=== PATIENT | female | born 1935 | race Caucasian/White ===

== ENCOUNTER 2017-12-02 08:10 | Outpatient (CLI) | payer MEDICARE, BC | END 2017-12-02 08:11 | disposition home or self-care (01) | LOC: BICMRI 08:10 | PROVIDERS: ATTEND Nurse Practitioner Family | DX: S32.019D Unspecified fracture of first lumbar vertebra, subsequent encounter for fracture with routine healing (principal); M48.062 Spinal stenosis, lumbar region with neurogenic claudication; M41.9 Scoliosis, unspecified | CPT/HCPCS: 72148 ==

== ENCOUNTER 2017-12-15 08:27 | Outpatient (CLI) | payer MEDICARE, BC | END 2017-12-15 08:28 | disposition home or self-care (01) | LOC: BICRAD 08:27 | PROVIDERS: ATTEND Anesthesiology Pain Medicine | DX: M47.894 Other spondylosis, thoracic region (principal); Z96.642 Presence of left artificial hip joint | CPT/HCPCS: 72070 ==

== ENCOUNTER 2018-01-04 10:21 | Outpatient (CLI) | payer MEDICARE, BC | END 2018-01-04 10:22 | disposition home or self-care (01) | LOC: BICMRI 10:21 | PROVIDERS: ATTEND Anesthesiology Pain Medicine | DX: M16.0 Bilateral primary osteoarthritis of hip (principal) ==

== ENCOUNTER 2018-01-24 13:31 | Outpatient (CLI) | payer MEDICARE, BC ==
--- NOTE | 2018-01-24 16:47 | MRI ---
MRI LEFT HIP WITHOUT CONTRAST: INDICATIONS: Left hip pain. COMPARISON: Prior MRI left hip from [facility], dated 01/04/2018. TECHNIQUE: Multiplanar, multisequence MR images were obtained of the left hip without IV contrast. FINDINGS: There is a partial-thickness, high-grade tear involving the left gluteus minimus along its posterior margin. The anterior mid aspect of the minimus tendon appears intact. There is a partial-thickness bursal surface tear involving the anterior left gluteus medius tendon. No muscular atrophy is grossly evident. The hamstring origins and the iliopsoas appear within normal limits. The rectus femoris insertions a ppear normal. There is mild degenerative arthrosis of the left hip. The visualized sciatic nerve is normal appearing. There is mild fluid underlying the subgluteus minimus trochanteric bursa, as well as the left subgluteus medius trochanteric bursa. IMPRESSION: 1. High-grade partial-thickness tear involving the posterior left gluteus minimus, with associated t rochanteric bursitis. There is moderate tendinosis of the left gluteus minimus tendon. 2. Low-grade bursal surface tear of the anterior aspect of the left gluteus medius with associated t rochanteric bursitis. 3. Mild degenerative arthrosis of the left hip. POS: PATRICIO
== END 2018-01-24 13:32 | disposition home or self-care (01) ==
LOC: TBSIIMAG 13:31
PROVIDERS: ATTEND Anesthesiology Pain Medicine
DX: S72.009A Fracture of unspecified part of neck of unspecified femur, initial encounter for closed fracture (principal); R22.9 Localized swelling, mass and lump, unspecified; S76.012A Strain of muscle, fascia and tendon of left hip, initial encounter; M16.12 Unilateral primary osteoarthritis, left hip; M70.62 Trochanteric bursitis, left hip

== ENCOUNTER 2018-02-15 14:19 | Outpatient (CLI) | payer MEDICARE, BC ==
--- NOTE | 2018-02-16 12:05 | MRI ---
MRI OF THE RIGHT HIP WITH AND WITHOUT IV CONTRAST: DATE: 02/15/18. PROVIDED CLINICAL HISTORY: Right hip mass. FINDINGS: Comparison is made with the MRI examination performed 01/04/18. There is a 2.6 x 1.4 cm greatest transverse dimension x at least 4.3 cm craniocaudal dimension mass p resent at the anterior aspect of the right hip joint overlying the inferior aspects of the femoral ne ck anteriorly. This demonstrates T1 signal characteristics isointense to skeletal muscle, heterogene ously hyperintense skeletal muscle on fluid-sensitive sequences, and fairly uniform contrast enhancem ent. This mass extends through the anterior aspect of the right hip joint capsule and there is enhan cement involving the lateral margin of the adjacent iliacus muscle. There is no evidence for cortica l involvement of the adjacent femoral neck or evidence for signal alteration involving the adjacent f emoral marrow. The amount of fluid within the right hip joint appears physiologic. No additional ma sses are evident. No additional abnormal contrast enhancement is identified. The courses of the regional major neurova scular structures appear unremarkable. The right hip flexor, abductor, adductor, and hamstring tendo ns demonstrate an intact MR appearance. IMPRESSION: Enhancing intraarticular mass involving the anterior inferior aspect of the right hip joint with caps ular breakthrough and involvement of the adjacent iliacus muscle. This is compatible with a neoplast ic process. Given the invasion of the adjacent musculature, a malignant neoplastic process cannot be excluded. Orthopedic ontologic consultation is recommended. CODE T POS: Mary
== END 2018-02-15 14:20 | disposition home or self-care (01) ==
LOC: TBSIIMAG 14:19
PROVIDERS: ATTEND Anesthesiology Pain Medicine
DX: M25.851 Other specified joint disorders, right hip (principal)

== ENCOUNTER 2018-02-17 08:02 | Day surgery (SDC) | payer MEDICARE, BC ==
[2018-02-16 09:23] VITALS: BMI 27.4
--- NOTE | 2018-02-17 13:05 | OP ---
DATE OF PROCEDURE: 02/17/2018 PREOPERATIVE DIAGNOSIS: Recurrent Clostridium difficile infection and colon cancer screening. PROCEDURE IN DETAIL: Informed consent was obtained from the patient. She was sedated with total int ravenous anesthesia. The rectal exam was performed and was normal. The colonoscope was advanced to the terminal ileum. The mucosa of the terminal ileum was normal. The ileocecal valve and appendicea l orifice were clearly identified. The preparation quality was good. The scope was withdrawn and th e mucosa was inspected throughout. There was moderate diverticulosis in the left colon. The colonic mucosa was otherwise normal. Retroflexed views in the rectum were normal. After thorough screening colonoscopy was performed, the scope was again advanced to the terminal ileum and donor stool was th en injected into the terminal ileum and colon. A total of 900 mL of donor stool were injected. IMPRESSION: 1. Diverticulosis in the sigmoid colon. 2. Otherwise normal screening colonoscopy to the terminal ileum. 3. 900 mL of donor stool were injected into the colon and terminal ileum for fecal transplant. RECOMMENDATIONS: Follow up in GI clinic to evaluate response to the fecal transplant. PROCEDURE: Colonoscopy with fecal transplant.
[2018-02-17] MEDS ORDERED: Lidocaine 1% PF 5 ML VIAL ONE (14:51)
[2018-02-17] MEDS ORDERED: PROPOFOL 200 MG/20 ML VIAL ONE (14:51)
--- NOTE | 2018-02-18 06:11 | EKG ---
Test Reason : PREOP Blood Pressure : / mmHG Vent. Rate : 061 BPM Atrial Rate : 061 BPM P-R Int : 184 ms QRS Dur : 082 ms QT Int : 444 ms P-R-T Axes : 062 -09 037 degrees QTc Int : 446 ms Normal sinus rhythm Nonspecific ST abnormality Abnormal ECG When compared with ECG of 28-JAN-2017 14:20, No significant change was found Confirmed by ESCOBAR SALAS ([id number]) on 02/18/2018 6:11:09 AM Referred By: MAZIN Confirmed By:ESCOBAR SALAS
== END 2018-02-17 12:52 | disposition home or self-care (01) ==
LOC: SDC 08:02
PROVIDERS: ATTEND Internal Medicine Gastroenterology
PROC: 3E0H8GC Introduction of Other Therapeutic Substance into Lower GI, Via Natural or Artificial Opening Endoscopic (ICD-10-PCS; principal; 2018-02-17)
DX: Z12.11 Encounter for screening for malignant neoplasm of colon (principal); D86.8 Sarcoidosis of other sites; K57.30 Diverticulosis of large intestine without perforation or abscess without bleeding; I25.10 Atherosclerotic heart disease of native coronary artery without angina pectoris; I10 Essential (primary) hypertension; E78.00 Pure hypercholesterolemia, unspecified; I25.2 Old myocardial infarction; N39.0 Urinary tract infection, site not specified; Z88.1 Allergy status to other antibiotic agents; Z79.899 Other long term (current) drug therapy; Z79.82 Long term (current) use of aspirin; Z86.010 Personal history of colon polyps
CPT/HCPCS: 93005; G0455; 93010; J2001; J2704

== ENCOUNTER 2018-05-16 09:32 | Outpatient (CLI) | payer MEDICARE, BC | END 2018-05-16 09:33 | disposition home or self-care (01) | LOC: BICMAMMO 09:32 | PROVIDERS: ATTEND Internal Medicine | DX: Z12.31 Encounter for screening mammogram for malignant neoplasm of breast (principal) | CPT/HCPCS: 77063; 77067 ==

== ENCOUNTER 2018-05-31 10:28 | Outpatient (CLI) | payer MEDICARE, BC ==
[2018-05-31 12:37] LABS: PTT 27.2 SEC (22.9-36.1); Prothrombin Time 12.9 SEC (12.0-14.7)
== END 2018-05-31 10:29 | disposition home or self-care (01) ==
LOC: LABBT 10:28
PROVIDERS: ATTEND Urology
DX: Z01.812 Encounter for preprocedural laboratory examination (principal); N32.9 Bladder disorder, unspecified
CPT/HCPCS: 85610; 85730

== ENCOUNTER 2018-06-03 07:25 | Observation (INO) | payer MEDICARE, BC ==
[2018-05-31 10:40] VITALS: BMI 26.5
[2018-06-03] MEDS ORDERED: CEFAZOLIN 2 GM/50 ML BAG ONE (08:59)
[2018-06-03] MEDS ORDERED: Iothalamate Meglumine 60% 50 ML VIAL FS ONE (09:17)
[2018-06-03] MEDS ORDERED: Midazolam HCl 2 mg/2 ml Vial ONE (09:21)
[2018-06-03] MEDS ORDERED: Fentanyl 100 MCG/2 ML VIAL ONE (09:21)
[2018-06-03] MEDS ORDERED: Furosemide 20 MG/2 ML VIAL ONE (10:13)
[2018-06-03] MEDS ORDERED: Ondansetron PF 4 MG/2 ML Vial ONE (11:20)
[2018-06-03] MEDS ORDERED: PROPOFOL 200 MG/20 ML VIAL ONE (11:20)
[2018-06-03] MEDS ORDERED: Glycopyrrolate 0.2 MG/ML 5 ML SYRINGE ONE (11:20)
[2018-06-03] MEDS ORDERED: Lidocaine 1% PF 5 ML VIAL ONE (11:20)
--- NOTE | 2018-06-03 12:51 | RAD ---
BILATERAL RETROGRADE PYELOGRAM: HISTORY: Stent placement. TECHNIQUE: A series of six C-arm films were presented for interpretation. FINDINGS: A single film with contrast injected into the right collecting system shows filling of a nondilated c ollecting system without any filling defects. The left collecting system is injected. It is nondila lula. The film shows placement of a left ureteral stent. IMPRESSION: Left ureteral stent placement. POS: TPC
[2018-06-03] MEDS ORDERED: Promethazine HCl 25 MG/ML VIAL ONE (12:59)
[2018-06-03] MEDS ORDERED: Ondansetron ODT 4 MG TAB ONE (14:10)
[2018-06-03] MEDS ORDERED: hydrALAZINE 20 MG/ML VIAL ONE (16:26)
--- NOTE | 2018-06-03 22:53 | PRG ---
DATE OF SERVICE: 06/03/2018 This is an 83-year-old white female, who earlier today underwent cysto, bladder biopsy, TURBT, retrograde studies and placement of left stent. She had this procedure finished around 11 this morning. I was called a little after 4, saying that she had been vomiting all afternoon and that the anesthesia provider had thought she needed to be admitted, because of intractable vomiting. On talking with the nurse, she said she had been urinating okay. The urine was, for the most part, clear. She did not appear to be having that much discomfort, but her blood pressure had also been up. They had been giving her, I think, some Zofran and then some Phenergan. I came and saw her, and she is not rolling around or writhing, but she is lying on her right side and has some discomfort. Her bladder felt to be distended. On exam, she did have a little bit of left costovertebral angle tenderness, which is the same side that her stent is on. For this reason, we went ahead and started to place the Montgomery catheter, and she drained out about a liter of darkish brown to bloody urine a few little clots, though it did appear to drain well, and she does have some relief of some of the discomfort. I think it is possible that her nausea is not all just related to her age and the anesthetic agents, but possibly that her bladder had become distended and from the stent, she was not draining her left kidney because of her bladder being distended. We will plan on sending her home with this catheter in. I am going to watch here for a couple of hours and give her another liter of fluid and see if her nausea resolves and let the Phenergan that she was given wear out. Also keep the track of what her urine looks like. If it is still a problem, then we may need to get her admitted and get the hospitalist involved in the care of her nausea at her age. Her routine doctor is Dr. Juju Lewis, who unfortunately does not, I do not believe, come to the hospital so as to help with admission if it was necessary or medical the reason I have seen her and I just started seeing her is because of symptoms suggestive of recurrent UTIs; however, only occasionally has it been a positive urine culture. Office cystoscopy showed irregular appearing mucosa around the left ureteral orifice, hence leading to the procedure that she had done today. Her surgical history includes ovarian cystectomy, hysterectomy, bladder suspension, and cataract surgery. Her medical illnesses include GE reflux disease, hypertension, elevated cholesterol, history in the past of coronary artery disease, and myocardial infarction. She had a distant history of transfusion in 1970s. She suffers also from some lumbar and cervical disk disease. She sees Dr. Coates for this. She also has osteoporosis. She also has had with C. difficile toxin and received a fecal transplant in February of this year, so we are trying to limit her use of antibiotics. Her routine medicines have been lisinopril with hydrochlorothiazide, verapamil, atorvastatin, Zetia, aspirin, Nexium, MiraLax, and she has been on a long-term estradiol. So, currently her bladder is not distended now and her abdomen is soft, and she is not complaining of any discomfort related to it. So, the plan at this time would be to watch her for another couple of hours and hope she will not need to be admitted, but if she does, then we will look at getting the hospitalist involved in her care. Job ID: [id number]
--- NOTE | 2018-06-06 11:53 | OP ---
DATE OF PROCEDURE: 06/03/2018 PREOPERATIVE DIAGNOSIS: Bladder lesions near left ureteral orifice. POSTOPERATIVE DIAGNOSIS: Bladder lesions near left ureteral orifice. PROCEDURES PERFORMED: Cystoscopy, bladder biopsies, pyelo retrograde, transurethral resection of bladder tumor, left stent. ANESTHESIA: General. ESTIMATED BLOOD LOSS: Minimal. DRAINS PLACED: 6 x 24 double-J stent without a string attach. FINDINGS: There is abnormal bladder mucosa with raised lesions along the left side of the trigone around the left ureteral orifice. This orifice did not drain well after the procedure. It was difficult to find it because of the inflammation from the biopsies and fulgurations of this area were just resected, and the ureteral orifice was completely identified and a stent was placed. We planned on leaving that stent in for 2 to 3 weeks. DESCRIPTION OF PROCEDURE: We obtained written and verbal consent from the patient. After receiving IV antibiotics, she was taken to the operating suite. She was placed in the supine position on the treatment table. were placed in her lower extremities and turned on. She was given a general anesthetic oral intubation, placed in dorsal lithotomy position, sterilely prepped and draped. Fluoroscopy unit was used for imaging and she was positioned under this. Cystoscopy was performed with a 22-Tunisian sheath. This was well lubricated and passed under direct vision through the female urethra and into the bladder 30-degree lens video camera and monitor. The entire bladder was examined with 30- and 70-degree lens, and the bladder was filled and emptied number of times. The lesions were starting from the mid left trigone extending to left ureteral orifice and slightly passed it. These were raised red areas. We used cold cup biopsy to biopsy 3 or 4 of these and cauterized these areas. We then did a retrograde study of the right ureter. We could not easily find the left ureteral orifice. She was given Indigo Cardwell and Lasix. It was effluxing, but we just could not intubate it. For this reason, we brought in the gyrus and resected just the side of the trigone until the ureteral orifice was easily identified. We then fed a guidewire up this to the retrograde study on this side with a 5-Tunisian Pollack catheter in either side where there are any persistent filling defects or areas of abnormality. At this point, the guidewires were placed, the open-ended catheter and then the 6 x 24 stent was passed over the guidewire and pushed up in place with aid of a pusher, so its proximal end coiled in the renal pelvis and its distal end coiled in the bladder when the wire was removed. The bladder was drained. The instruments were removed. She was taken out of the dorsal lithotomy position, awakened, and extubated and taken by a stretcher to the recovery room. Job ID: [id number]
--- NOTE | 2018-06-10 07:29 | PQF ---
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 Check the appropriate box and include in your discharge summary. [ ] [ ] [ ] [ ] Please check this box if this does not apply to this patient [ ] Unable to determine [ ] Other diagnosis: Review the following information and exercise your independent professional judgment in responding to the clarification. Based upon the clinical findings, risk factors, and treatment, please clarify if you are treating one of the above probable or suspected diagnoses. Physician Signature: Date Time MTDD
== END 2018-06-03 19:29 | disposition home or self-care (01) ==
LOC: SDC 07:25 → SURG A 17:00
PROVIDERS: ADMIT Internal Medicine; ATTEND Internal Medicine
PROC: 0TBB8ZX Excision of Bladder, Via Natural or Artificial Opening Endoscopic, Diagnostic (ICD-10-PCS; principal; 2018-06-03)
PROC: 0T778DZ Dilation of Left Ureter with Intraluminal Device, Via Natural or Artificial Opening Endoscopic (ICD-10-PCS; 2018-06-03)
DX: N30.80 Other cystitis without hematuria (principal); N30.20 Other chronic cystitis without hematuria; K21.9 Gastro-esophageal reflux disease without esophagitis; I10 Essential (primary) hypertension; E78.00 Pure hypercholesterolemia, unspecified; I25.10 Atherosclerotic heart disease of native coronary artery without angina pectoris; I25.2 Old myocardial infarction; M47.892 Other spondylosis, cervical region; M47.896 Other spondylosis, lumbar region; M81.0 Age-related osteoporosis without current pathological fracture; Z79.82 Long term (current) use of aspirin; Z79.899 Other long term (current) drug therapy; Z88.8 Allergy status to other drugs, medicaments and biological substances
CPT/HCPCS: 74420; J0360; J1940; J2250; J2550; J3010; Q0162; Q9961

== ENCOUNTER 2018-06-04 15:55 | Inpatient (IN) | payer MEDICARE, BC ==
[2018-06-04 16:33] LABS: Bilirubin Large (Negative); Blood, Urine Large (Negative); Clarity CLOUDY (Clear); Glucose, Urine (Dipstick) Negative (Negative); Leukocyte Large (Negative); Nitrite Positive (Negative); Protein, Urine (Dipstick) 300 mg/dL (Neg-Trace); Specific Gravity, Urine 1.017 (1.002-1.036)
[2018-06-04 16:36] LABS: Bacteria/HPF None Seen HPF (None Seen); Hyaline Casts/LPF 4-6 HYALINE CAST LPF (0-3 Hyaline); Pathc Cast-AUWi Flag 1.26 (0-2.49); Squamous Epithelial 0-3 HPF (0-3); Yeast-AUWi Flag 2192.2 (0-25.0)
[2018-06-04 16:37] LABS: RBC/HPF GREATER THAN 50-TNTC HPF (0-3)
[2018-06-04 16:38] LABS: Renal Epithelial None Seen HPF (0-3); Transitional Epithelial NONE SEEN HPF (0-3); Yeast-All Forms None Seen HPF (None Seen)
[2018-06-04 16:48] LABS: #Basophils 0.1 thou/uL (0.0-0.2); #Eosinphils 0.1 thou/uL (0.0-0.7); #Lymphocytes 2.6 thou/uL (1.20-3.40); #Monocytes 1.2 thou/uL (0.11-0.59); #Neutrophils 10.3 thou/uL (1.40-6.50); %Basophils 0.7 % (0.0-1.0); %Eosinophils 0.5 % (0.0-10.0); %Lymphocytes 18.3 % (21.0-51.0); %Monocytes 8.2 % (0.0-10.0); %Neutrophils 72.3 % (42.0-75.0); Mean Corpuscular HGB CONC 34.3 g/dL (32.0-36.0); Mean Corpuscular Hemoglobin 31.7 pg (27.0-31.0); Mean Corpuscular Volume 92.5 fL (78.0-98.0); Mean Platelet Volume 7.1 fL (7.4-10.4); Platelet Count 569 thou/uL (130-400); RBC Distribution Width 12.2 % (11.5-14.5); Red Blood Cell (RBC) Count 4.12 mill/uL (4.20-5.40); White Blood Cell (WBC) Count 14.2 thou/uL (4.8-10.8)
[2018-06-04 17:10] LABS: ALT (SGPT) 12 U/L (8-55); AST (SGOT) 14 U/L (5-34); Albumin 3.8 g/dL (3.4-4.8); Alkaline Phosphatase 53 U/L (40-150); Anion Gap 15 mmol/L (10-20); BUN (Urea Nitrogen) 9 mg/dL (9.8-20.1); Bilirubin, Total 0.4 mg/dL (0.2-1.2); Calc. Creatinine Clearance 0 mL/min (70-130); Calcium 8.9 mg/dL (7.8-10.44); Carbon Dioxide 22 mmol/L (23-31); Chloride 89 mmol/L (98-107); Estimated GFR-MDRD 81; Globulin 2.9 g/dL (2.4-3.5); Glucose 117 mg/dL (83-110); Potassium 3.7 mmol/L (3.5-5.1); Protein, Total 6.7 g/dL (6.0-8.3); Sodium 122 mmol/L (136-145)
[2018-06-04] MEDS ORDERED: HYDROcodone/Acetaminophen 5/325 mg Tablet PO PRN ×2 (17:15)
[2018-06-04] MEDS ORDERED: Mag-Al 1200 mg/1200 mg/30 ML UDCUP PO PRN (17:15)
[2018-06-04] MEDS ORDERED: hydrALAZINE 20 MG/ML VIAL SLOW IVP PRN ×2 (17:15)
[2018-06-04] MEDS ORDERED: Ondansetron PF 4 MG/2 ML Vial IVP PRN (17:15)
[2018-06-04] MEDS ORDERED: diphenhydrAMINE 50 MG/ML VIAL IVP PRN (17:15)
[2018-06-04] MEDS ORDERED: Morphine 4 MG/ML VIAL SLOW IVP PRN (18:00)
[2018-06-04] MEDS ORDERED: Oxybutynin 5 MG TAB PO SCH (18:00)
[2018-06-04] MEDS ORDERED: cefTRIAXone\\ROCEPHIN 1 GM in Sodium Chloride 0.9% 100 ML IVPB SCH (18:30)
[2018-06-04] MEDS: Sodium Chloride 0.9% 1,000 ML IV SCH (21:40)
[2018-06-04] MEDS: Ascorbic Acid 500 mg Chewable Tablet PO SCH (22:01)
[2018-06-04] MEDS: Atorvastatin Calcium 20 MG TAB PO SCH (22:03)
[2018-06-04] MEDS: Calcium Carbonate + Vit D 1 TAB PO SCH (22:03)
[2018-06-04] MEDS: Docusate 100 MG CAP PO SCH (22:03)
[2018-06-04] MEDS: Lisinopril 10 MG TAB PO SCH (22:03)
[2018-06-04] MEDS: Oxybutynin 5 MG TAB PO SCH (22:35)
[2018-06-04] MEDS: cefTRIAXone\\ROCEPHIN 1 GM in Sodium Chloride 0.9% 100 ML IVPB SCH (22:35)
--- NOTE | 2018-06-04 22:57 | CON ---
DATE OF CONSULTATION: 06/04/2018 PRIMARY UROLOGIST: Dr. Selby. REASON FOR EVALUATION: Gross hematuria, decreased urine output, status post TURBT and right ureteral stent. HISTORY OF PRESENT ILLNESS: Ms. Londono is an 83-year-old female with history of recurrent UTI, who was evaluated by Dr. Selby. Chart reviewed. There is no formal op note for me to be reviewed; however, the patient's clinical history was provided to me by Dr. Selby as she had a prolonged postoperative course after her TURBT. She was subsequently discharged after TURBT, ureteral stent. She developed postoperative nausea with bladder distention, In postoperative period, she did not have an indwelling urethral Montgomery catheter; however, Dr. Selby placed a Montgomery catheter and got significant amount of urine out, the patient's nausea resolved and subsequently, she was discharged to home. She did have evidence of hematuria with Montgomery catheter placement; however, it was felt that it was not significant enough to warrant admission. As she felt better, she went home. The patient's called our service this afternoon as there was decreased urine output with clots in the tubing. I encouraged the patient to come to the emergency room. On arrival to the emergency room, her vital signs were stable. Hemoglobin and hematocrit were relatively stable. The urine Montgomery bag does demonstrate dark maroon blood. I did irrigate the Montgomery at bedside and obtained some clots, approximately 50 mL to 60 mL. As there was evidence of further clot, I did exchange her Montgomery catheter to a 22-Turkish 3-way 30 mL, which was placed uneventfully. Further clots were evacuated, additional 50 to 60 mL of clots were evacuated. CBI started with immediate clearing pink tinge. She tolerated the procedure with no significant pain. remained at bedside. PAST MEDICAL HISTORY: Includes GERD; hypertension; hypercholesterolemia; coronary artery disease; history of ID, on baby aspirin, baby aspirin has been held per Dr. Selby; history of lumbar cervical disease, followed by Dr. Coates. PAST SURGICAL HISTORY: Includes ovarian cystectomy, hysterectomy, bladder suspension, and cataract surgery. She is postoperative day #1 cysto, TURBT, right retrograde right ureteral stent. ALLERGIES: TO ERYTHROMYCIN. REVIEW OF SYSTEMS: 10-point review of systems as above, otherwise noncontributory. PHYSICAL EXAMINATION: VITAL SIGNS: Stable. ABDOMEN: Soft, nontender, and nondistended. GENITOURINARY: Montgomery catheter pre-existing was irrigated as above and a new 22-Turkish 30 mL was placed and irrigated at bedside. CBI tubing attached with light pink output at a slow rate. PERTINENT LABORATORY DATA: White count 14; hemoglobin 13, this is her near baseline; and platelet count of 569. Previous coagulation profiles within normal limits. Her baseline creatinine of 0.6. UA today read 300 protein, positive nitrites, greater than 50 send her urine culture. IMPRESSION AND PLAN: Ms. Londono is an 83-year-old female, postoperative day #1 cystoscopy, transurethral resection of bladder tumor, right retrograde stent by Dr. Selby. The patient would be admitted as she presents with gross hematuria with clot retention. We will monitor the patient and continue her bladder irrigation. Due to her recent postop events, it would be prudent to watch the patient overnight as she is high risk for returning to the ER due to persistent clot retention. She is hemodynamically stable. As she has nitrite positive urine, I will start antibiotics as well. Number to hyponatremia likely due to increase free water consumption patient a symptomatic. Hospitalist has been consulted. Continue 0.9 normal saline hydration Job ID: [id number]
[2018-06-05 02:36] VITALS: BMI 26.5
[2018-06-05] MEDS: Oxybutynin 5 MG TAB PO SCH ×3 (05:23→21:36)
[2018-06-05 05:40] LABS: #Basophils 0.1 thou/uL (0.0-0.2); #Eosinphils 0.1 thou/uL (0.0-0.7); #Lymphocytes 2.3 thou/uL (1.20-3.40); #Monocytes 0.9 thou/uL (0.11-0.59); #Neutrophils 8.3 thou/uL (1.40-6.50); %Basophils 0.8 % (0.0-1.0); %Eosinophils 0.8 % (0.0-10.0); %Lymphocytes 19.8 % (21.0-51.0); %Monocytes 7.9 % (0.0-10.0); %Neutrophils 70.7 % (42.0-75.0); Hemoglobin 12.6 g/dL (12.0-16.0); Mean Corpuscular HGB CONC 33.9 g/dL (32.0-36.0); Mean Corpuscular Hemoglobin 31.6 pg (27.0-31.0); Mean Corpuscular Volume 93.2 fL (78.0-98.0); Mean Platelet Volume 7.4 fL (7.4-10.4); Platelet Count 512 thou/uL (130-400); RBC Distribution Width 12.2 % (11.5-14.5); White Blood Cell (WBC) Count 11.8 thou/uL (4.8-10.8)
[2018-06-05 05:51] LABS: Anion Gap 12 mmol/L (10-20); BUN (Urea Nitrogen) 8 mg/dL (9.8-20.1); Calc. Creatinine Clearance 76 mL/min (70-130); Calcium 8.9 mg/dL (7.8-10.44); Carbon Dioxide 25 mmol/L (23-31); Chloride 97 mmol/L (98-107); Estimated GFR-MDRD Greater than 90; Glucose 98 mg/dL (83-110); Potassium 3.7 mmol/L (3.5-5.1); Sodium 130 mmol/L (136-145)
[2018-06-05] MEDS: Sodium Chloride 0.9% 1,000 ML IV SCH ×3 (07:12→20:12)
[2018-06-05] MEDS: Cyanocobalamin (Vitamin B-12) 1,000 MCG TAB PO SCH (08:48)
[2018-06-05] MEDS: Calcium Carbonate + Vit D 1 TAB PO SCH ×2 (08:48→20:15)
[2018-06-05] MEDS: Docusate 100 MG CAP PO SCH ×2 (08:49→20:08)
[2018-06-05] MEDS: Ezetimibe 10 MG TAB PO SCH (08:49)
[2018-06-05] MEDS: Fish Oil 1,000 MG CAP PO SCH (08:49)
[2018-06-05] MEDS ORDERED: Non-Formulary Item 1 EACH (Cyanocobalamin (Vitamin B-12) [Vitamin B12] 5,000 MCG) PO SCH (09:00)
--- NOTE | 2018-06-05 09:31 | PDOC.PN ---
- Subjective Encounter Start Date: 06/05/18 Encounter Start Time: 08:00 -: old records requested/rev pt is admitted for clot retention, currently getting CBI, her urine color is improving, she has not pain Patient seen and examined. No new complaints. No overnight events - Objective MAR Reviewed: Yes Vital Signs & Weight: Vital Signs (12 hours) Temp Pulse Resp BP BP Pulse Ox 06/05/18 08:03 97.8 F 71 18 157/78 H 95 06/05/18 07:56 97.8 F 71 18 157/78 H 97 06/05/18 07:46 97.9 F 63 18 144/76 H 95 06/05/18 04:00 97.9 F 64 18 132/74 98 06/05/18 00:00 98.3 F 63 18 149/79 H 96 Weight Weight 149 lb 14.629 oz I&O: 06/04/18 06/05/18 06/06/18 06:59 06:59 06:59 Intake Total 1460 Output Total 28037 Balance -[id number] Result Diagrams: 06/05/18 04:24 06/05/18 04:24 Phys Exam - Physical Examination Constitutional: NAD HEENT: PERRLA, moist MMs, sclera anicteric Neck: no JVD, supple Respiratory: no wheezing, no rales, no rhonchi Cardiovascular: RRR, no significant murmur, no rub Gastrointestinal: soft, non-tender, no distention, positive bowel sounds john+ Musculoskeletal: no edema, pulses present Neurological: non-focal, normal sensation, moves all 4 limbs Lymphatic: no nodes Psychiatric: normal affect, A&O x 3 Skin: no rash, normal turgor Dx/Plan (1) Clot retention of urine Code(s): R33.8 - OTHER RETENTION OF URINE Status: Acute (2) Gross hematuria Status: Acute (3) Hyponatremia Code(s): E87.1 - HYPO-OSMOLALITY AND HYPONATREMIA Status: Acute (4) UTI (urinary tract infection) due to urinary indwelling John catheter Code(s): T83.511A - I/I REACT D/T INDWELLING URETHRAL CATHETER, INIT; N39.0 - URINARY TRACT INFECTION, SITE NOT SPECIFIED Status: Acute (5) CAD (coronary artery disease) Code(s): I25.10 - ATHSCL HEART DISEASE OF [place] CORONARY ARTERY W/O ANG PCTRS Status: Chronic (6) Chronic low back pain Code(s): M54.5 - LOW BACK PAIN; G89.29 - OTHER CHRONIC PAIN Status: Chronic (7) Dyslipidemia Code(s): E78.5 - HYPERLIPIDEMIA, UNSPECIFIED Status: Chronic (8) GERD (gastroesophageal reflux disease) Code(s): K21.9 - GASTRO-ESOPHAGEAL REFLUX DISEASE WITHOUT ESOPHAGITIS Status: Chronic (9) Hypertension Code(s): I10 - ESSENTIAL (PRIMARY) HYPERTENSION Status: Chronic - Plan cont current plan of care, continue antibiotics * medication reviewed as below * symptomatic treatment * home medication reconciled * medically stable * continue IV antibiotics * discharge decision per primary team * resume home meds on discharge * code status full code. Review of Systems - Review of Systems ENT: negative: Ear Pain, Ear Discharge, Nose Pain, Nose Discharge, Nose Congestion, Mouth Pain, Mouth Swelling, Throat Pain, Throat Swelling, Other Respiratory: negative: Cough, Dry, Shortness of Breath, Hemoptysis, SOB with Excertion, Pleuritic Pain, Sputum, Wheezing Cardiovascular: negative: chest pain, palpitations, orthopnea, paroxysmal nocturnal dyspnea, edema, light headedness, other Gastrointestinal: negative: Nausea, Vomiting, Abdominal Pain, Diarrhea, Constipation, Melena, Hematochezia, Other Genitourinary: Hematuria. negative: Dysuria, Frequency, Incontinence, Retention , Other Musculoskeletal: negative: Neck Pain, Shoulder Pain, Arm Pain, Back Pain, Hand Pain, Leg Pain, Foot Pain, Other Skin: negative: Rash, Lesions, Elijah, Bruising, Other - Medications/Allergies Allergies/Adverse Reactions: Allergies Allergy/AdvReac Type Severity Reaction Status Date / Time erythromycin base Allergy Rash Verified 05/31/18 10:40 Medications: Current Medications Hydrocodone Bitart/Acetaminophen (Normal 5/325) 1 tab PO Q4H PRN PRN Reason: Moderate Pain (4-6) Hydrocodone Bitart/Acetaminophen (Normal 5/325) 2 tab PO Q4H PRN PRN Reason: Severe Pain (7-10) Al Hydroxide/Mg Hydroxide (Maalox) 30 ml PO Q4H PRN PRN Reason: Indigestion Ascorbic Acid (Vitamin C) 500 mg PO HS [facility] Last Admin: 06/04/18 22:01 Dose: Not Given Atorvastatin Calcium (Lipitor) 20 mg PO HS [facility] Last Admin: 06/04/18 22:03 Dose: Not Given Calcium/Vitamin D (Caltrate 600 + Vit D) 1 tab PO BID [facility] Last Admin: 06/05/18 08:48 Dose: 1 tab Cyanocobalamin (Vitamin B-12) 5,000 mcg PO DAILY [facility] Last Admin: 06/05/18 08:48 Dose: 5,000 mcg Diphenhydramine HCl (Benadryl) 25 mg IVP Q6H PRN PRN Reason: Itching Docusate Sodium (Colace) 100 mg PO BID [facility] Last Admin: 06/05/18 08:49 Dose: 100 mg Ezetimibe (Zetia) 10 mg PO DAILY [facility] Last Admin: 06/05/18 08:49 Dose: 10 mg Estradiol (Estrace) 1 mg PO Q2DAYS@0900 [facility] Fish Oil (Fish Oil) 1,000 mg PO DAILY [facility] Last Admin: 06/05/18 08:49 Dose: 1,000 mg Hydralazine HCl (Apresoline) 20 mg SLOW IVP Q4H PRN PRN Reason: SBP greater than 160/100 Hydralazine HCl (Apresoline) 20 mg SLOW IVP Q6H PRN PRN Reason: SBP greater than 160/100 Sodium Chloride (Normal Saline 0.9%) 1,000 mls @ 80 mls/hr IV .[id number] [facility] Last Admin: 06/05/18 08:55 Dose: 1,000 mls Ceftriaxone Sodium 1 gm/ (Sodium Chloride) 100 mls @ 200 mls/hr IVPB 2200 [facility] Last Admin: 06/04/18 22:35 Dose: 100 mls Lisinopril (Zestril) 10 mg PO [facility] Last Admin: 06/04/18 22:03 Dose: Not Given Morphine Sulfate (Morphine) 2 mg IVP Q2H PRN PRN Reason: Moderate Pain (4-6) Morphine Sulfate (Morphine) 4 mg SLOW IVP Q2H PRN PRN Reason: Severe Pain (7-10) Ondansetron HCl (Zofran) 4 mg IVP Q6H PRN PRN Reason: Nausea Oxybutynin Chloride (Ditropan) 5 mg PO Q8HR [facility] Last Admin: 06/05/18 05:23 Dose: 5 mg Pantoprazole Sodium (Protonix) 40 mg PO HS [facility] Last Admin: 06/04/18 22:04 Dose: Not Given Sodium Chloride (Flush - Normal Saline) 10 ml IVF PRN PRN PRN Reason: Saline Flush
[2018-06-05] MEDS: Hyoscyamine Sulfate SL 0.125 mg Tablet PO SCH ×3 (13:40→20:05)
[2018-06-05] MEDS: Atorvastatin Calcium 20 MG TAB PO SCH (20:07)
[2018-06-05] MEDS: Lisinopril 10 MG TAB PO SCH (20:08)
[2018-06-05] MEDS: Ascorbic Acid 500 mg Chewable Tablet PO SCH (20:15)
[2018-06-05] MEDS: cefTRIAXone\\ROCEPHIN 1 GM in Sodium Chloride 0.9% 100 ML IVPB SCH (21:31)
[2018-06-06] MEDS: Hyoscyamine Sulfate SL 0.125 mg Tablet PO SCH ×6 (00:08→20:42)
[2018-06-06] MEDS: Oxybutynin 5 MG TAB PO SCH ×3 (05:22→20:42)
[2018-06-06 05:42] LABS: #Basophils 0.1 thou/uL (0.0-0.2); #Eosinphils 0.2 thou/uL (0.0-0.7); #Lymphocytes 2.9 thou/uL (1.20-3.40); #Monocytes 0.9 thou/uL (0.11-0.59); #Neutrophils 8.1 thou/uL (1.40-6.50); %Basophils 0.8 % (0.0-1.0); %Eosinophils 1.6 % (0.0-10.0); %Lymphocytes 23.5 % (21.0-51.0); %Monocytes 7.6 % (0.0-10.0); %Neutrophils 66.5 % (42.0-75.0); Hemoglobin 11.6 g/dL (12.0-16.0); Mean Corpuscular HGB CONC 33.7 g/dL (32.0-36.0); Mean Corpuscular Hemoglobin 31.8 pg (27.0-31.0); Mean Corpuscular Volume 94.3 fL (78.0-98.0); Mean Platelet Volume 7.6 fL (7.4-10.4); Platelet Count 501 thou/uL (130-400); RBC Distribution Width 12.3 % (11.5-14.5); Red Blood Cell (RBC) Count 3.65 mill/uL (4.20-5.40); White Blood Cell (WBC) Count 12.2 thou/uL (4.8-10.8)
[2018-06-06 05:56] LABS: Anion Gap 11 mmol/L (10-20); BUN (Urea Nitrogen) 11 mg/dL (9.8-20.1); Calc. Creatinine Clearance 75 mL/min (70-130); Calcium 8.6 mg/dL (7.8-10.44); Carbon Dioxide 24 mmol/L (23-31); Chloride 103 mmol/L (98-107); Estimated GFR-MDRD Greater than 90; Glucose 106 mg/dL (83-110); Potassium 4.3 mmol/L (3.5-5.1); Sodium 134 mmol/L (136-145)
--- NOTE | 2018-06-06 07:59 | PRG ---
DATE OF SERVICE: 06/05/2018 INPATIENT PROGRESS NOTE SUBJECTIVE: The patient is resting comfortably, is at bedside. The patient is currently on CBI. Per the patient, worsening hematuria noted with activity, sitting up in a chair. OBJECTIVE: VITAL SIGNS: Stable. She is afebrile. ABDOMEN: Soft, nontender, and nondistended. : CBI is running at a moderate to high rate with german red urine with intermittent clearing, however, remains german red. I did flush her catheter at the bedside, and I was able to obtain some clot evacuation. Approximately, 30 to 40 mL of clots was evaluated. CBI is restarted at moderate rate. PERTINENT LABS: White count of 11, hemoglobin 12.6, and platelets 512. Sodium has improved from 122 to 130. BUN 8, creatinine 0.6. IMPRESSION AND PLAN: Ms. Londono is an 83-year-old female with history of: 1. Recurrent urinary tract infection. 2. History of bladder lesion, followed by Dr. Selby. Postop day #2 status post cysto, transurethral resection of bladder tumour, right ureteral stent placement due to right periurethral lesion. 3. Postop clot retention with gross hematuria. 4. Hyponatremia due to increased free water intake. She is to continue her 0.9 normal saline. Her sodium has improved. Due to persistent gross hematuria, I will monitor the patient on continuous bladder irrigation. She is currently on Ditropan and states that she still has bladder spasms. I will add Levsin sublingual every 4 hours. Bedrest as hematuria worsens with activity. Bilateral SCDs, for mechanical DVT prophylaxis. There are no indications to transfuse at this time. She is to remain on bedrest until hematuria clears. Dr. Selby will resume her care tomorrow morning. Job ID: [id number] [facility]
[2018-06-06] MEDS: Cyanocobalamin (Vitamin B-12) 1,000 MCG TAB PO SCH (08:42)
[2018-06-06] MEDS: Fish Oil 1,000 MG CAP PO SCH (08:43)
[2018-06-06] MEDS: Calcium Carbonate + Vit D 1 TAB PO SCH ×2 (08:43→20:43)
[2018-06-06] MEDS: Docusate 100 MG CAP PO SCH ×2 (08:43→20:44)
[2018-06-06] MEDS: Ezetimibe 10 MG TAB PO SCH (08:43)
[2018-06-06] MEDS: Polyethylene Glycol 3350 17 GM Packet PO SCH ×2 (08:57→20:47)
[2018-06-06] MEDS ORDERED: Ubidecarenone 50 MG CAP PO SCH (09:00)
[2018-06-06] MEDS ORDERED: Lisinopril/Hydrochlorothiazide 20/25 mg Tablet PO SCH (09:00)
[2018-06-06] MEDS: Sodium Chloride 0.9% 1,000 ML IV SCH ×2 (09:13→21:12)
[2018-06-06] MEDS: Estradiol 1 MG TAB PO SCH (10:08)
--- NOTE | 2018-06-06 10:56 | PDOC.PN ---
- Subjective Encounter Start Date: 06/06/18 Encounter Start Time: 07:50 Patient seen and examined. No new complaints. No overnight events pt still has reddish urine, bedside, - Objective Resuscitation Status - Order Detail: 06/05/18 09:45 Resuscitation Status Routine Resuscitation Status: FULL: Full Resuscitation MAR Reviewed: Yes Vital Signs & Weight: Vital Signs (12 hours) Temp Pulse Resp BP BP Pulse Ox 06/06/18 10:12 69 146/80 H 06/06/18 09:05 97 06/06/18 08:00 98.0 F 69 18 146/80 H 97 06/06/18 04:00 97.7 F 75 18 143/83 H 95 06/06/18 00:00 97.8 F 74 18 141/79 H 98 Weight Weight 149 lb 14.629 oz I&O: 06/05/18 06/06/18 06/07/18 06:59 06:59 06:59 Intake Total 1460 3410 Output Total 68567 46941 200 Balance -43241 -64879 -200 Result Diagrams: 06/06/18 04:42 06/06/18 04:42 Phys Exam - Physical Examination Constitutional: NAD HEENT: PERRLA, moist MMs, sclera anicteric Neck: no JVD, supple Respiratory: no wheezing, no rales, no rhonchi Cardiovascular: RRR, no significant murmur, no rub Gastrointestinal: soft, non-tender, no distention, positive bowel sounds Musculoskeletal: no edema, pulses present Neurological: non-focal, normal sensation, moves all 4 limbs Lymphatic: no nodes Psychiatric: normal affect, A&O x 3 Skin: no rash, normal turgor Dx/Plan (1) Clot retention of urine Code(s): R33.8 - OTHER RETENTION OF URINE Status: Acute (2) Gross hematuria Status: Acute (3) Hyponatremia Code(s): E87.1 - HYPO-OSMOLALITY AND HYPONATREMIA Status: Acute (4) UTI (urinary tract infection) due to urinary indwelling Montgomery catheter Code(s): T83.511A - I/I REACT D/T INDWELLING URETHRAL CATHETER, INIT; N39.0 - URINARY TRACT INFECTION, SITE NOT SPECIFIED Status: Acute (5) CAD (coronary artery disease) Code(s): I25.10 - ATHSCL HEART DISEASE OF [place] CORONARY ARTERY W/O ANG PCTRS Status: Chronic (6) Chronic low back pain Code(s): M54.5 - LOW BACK PAIN; G89.29 - OTHER CHRONIC PAIN Status: Chronic (7) Dyslipidemia Code(s): E78.5 - HYPERLIPIDEMIA, UNSPECIFIED Status: Chronic (8) GERD (gastroesophageal reflux disease) Code(s): K21.9 - GASTRO-ESOPHAGEAL REFLUX DISEASE WITHOUT ESOPHAGITIS Status: Chronic (9) Hypertension Code(s): I10 - ESSENTIAL (PRIMARY) HYPERTENSION Status: Chronic - Plan cont current plan of care, plan discussed w/ family * home medication reconciled * medication reviewed as below * symptomatic treatment * urology following for gross hemturia * continue CBI * discharge per urology when ok. Review of Systems - Review of Systems ENT: negative: Ear Pain, Ear Discharge, Nose Pain, Nose Discharge, Nose Congestion, Mouth Pain, Mouth Swelling, Throat Pain, Throat Swelling, Other Respiratory: negative: Cough, Dry, Shortness of Breath, Hemoptysis, SOB with Excertion, Pleuritic Pain, Sputum, Wheezing Cardiovascular: negative: chest pain, palpitations, orthopnea, paroxysmal nocturnal dyspnea, edema, light headedness, other Gastrointestinal: negative: Nausea, Vomiting, Abdominal Pain, Diarrhea, Constipation, Melena, Hematochezia, Other Genitourinary: Hematuria. negative: Dysuria, Frequency, Incontinence, Retention , Other Musculoskeletal: negative: Neck Pain, Shoulder Pain, Arm Pain, Back Pain, Hand Pain, Leg Pain, Foot Pain, Other Skin: negative: Rash, Lesions, Elijah, Bruising, Other - Medications/Allergies Allergies/Adverse Reactions: Allergies Allergy/AdvReac Type Severity Reaction Status Date / Time erythromycin base Allergy Rash Verified 05/31/18 10:40 Medications: Current Medications Hydrocodone Bitart/Acetaminophen ([place] 5/325) 1 tab PO Q4H PRN PRN Reason: Moderate Pain (4-6) Hydrocodone Bitart/Acetaminophen ([place] 5/325) 2 tab PO Q4H PRN PRN Reason: Severe Pain (7-10) Al Hydroxide/Mg Hydroxide (Maalox) 30 ml PO Q4H PRN PRN Reason: Indigestion Ascorbic Acid (Vitamin C) 500 mg PO [facility] Last Admin: 06/05/18 20:15 Dose: Not Given Atorvastatin Calcium (Lipitor) 20 mg PO [facility] Last Admin: 06/05/18 20:07 Dose: 20 mg Calcium/Vitamin D (Caltrate 600 + Vit D) 1 tab PO BID [facility] Last Admin: 06/06/18 08:43 Dose: 1 tab Coenzyme Q10 (Coenzyme Q10) 200 mg PO HS [facility] Cyanocobalamin (Vitamin B-12) 5,000 mcg PO DAILY [facility] Last Admin: 06/06/18 08:42 Dose: 5,000 mcg Diphenhydramine HCl (Benadryl) 25 mg IVP Q6H PRN PRN Reason: Itching Docusate Sodium (Colace) 100 mg PO BID [facility] Last Admin: 06/06/18 08:43 Dose: 100 mg Ezetimibe (Zetia) 10 mg PO DAILY [facility] Last Admin: 06/06/18 08:43 Dose: 10 mg Estradiol (Estrace) 1 mg PO Q2DAYS@0900 [facility] Last Admin: 06/06/18 10:08 Dose: Not Given Fish Oil (Fish Oil) 1,000 mg PO DAILY [facility] Last Admin: 06/06/18 08:43 Dose: Not Given Lisinopril/HCTZ (Prinizide 20-25) 1 tab PO DAILY [facility] Last Admin: 06/06/18 10:12 Dose: 1 tab Hydralazine HCl (Apresoline) 20 mg SLOW IVP Q4H PRN PRN Reason: SBP greater than 160/100 Hydralazine HCl (Apresoline) 20 mg SLOW IVP Q6H PRN PRN Reason: SBP greater than 160/100 Hyoscyamine Sulfate (Levsin Sl) 0.125 mg PO Q4H [facility] Last Admin: 06/06/18 08:41 Dose: 0.125 mg Sodium Chloride (Normal Saline 0.9%) 1,000 mls @ 80 mls/hr IV .[id number] [facility] Last Admin: 06/06/18 09:13 Dose: 1,000 mls Lisinopril (Zestril) 10 mg PO [facility] Morphine Sulfate (Morphine) 2 mg IVP Q2H PRN PRN Reason: Moderate Pain (4-6) Morphine Sulfate (Morphine) 4 mg SLOW IVP Q2H PRN PRN Reason: Severe Pain (7-10) Ondansetron HCl (Zofran) 4 mg IVP Q6H PRN PRN Reason: Nausea Oxybutynin Chloride (Ditropan) 5 mg PO Q8HR [facility] Last Admin: 06/06/18 05:22 Dose: 5 mg Pantoprazole Sodium (Protonix) 40 mg PO HS [facility] Last Admin: 06/05/18 20:10 Dose: 40 mg Resveratrol 200 Mg 0 each PO 1200 [facility] Polyethylene Glycol (Miralax) 17 gm PO BID [facility] Last Admin: 06/06/18 08:57 Dose: 17 gm Sodium Chloride (Flush - Normal Saline) 10 ml IVF PRN PRN PRN Reason: Saline Flush Verapamil HCl (Calan Sr) 240 mg PO HS [facility]
[2018-06-06] MEDS ORDERED: RESVERATROL PO SCH (12:00)
[2018-06-06] MEDS: Ascorbic Acid 500 mg Chewable Tablet PO SCH (20:41)
[2018-06-06] MEDS: Atorvastatin Calcium 20 MG TAB PO SCH (20:42)
[2018-06-06] MEDS: Lisinopril 10 MG TAB PO SCH (20:45)
[2018-06-06] MEDS: Ubidecarenone 50 MG CAP PO SCH (20:51)
[2018-06-07] MEDS: Hyoscyamine Sulfate SL 0.125 mg Tablet PO SCH ×4 (04:50→13:38)
[2018-06-07] MEDS: Oxybutynin 5 MG TAB PO SCH ×2 (04:50→13:38)
[2018-06-07] MEDS: Calcium Carbonate + Vit D 1 TAB PO SCH ×2 (07:46→20:44)
[2018-06-07] MEDS: Fish Oil 1,000 MG CAP PO SCH (07:46)
[2018-06-07] MEDS: Cyanocobalamin (Vitamin B-12) 1,000 MCG TAB PO SCH (07:48)
[2018-06-07] MEDS: Docusate 100 MG CAP PO SCH ×2 (07:49→20:45)
[2018-06-07] MEDS: Ezetimibe 10 MG TAB PO SCH (08:29)
[2018-06-07] MEDS: Polyethylene Glycol 3350 17 GM Packet PO SCH ×2 (08:30→20:43)
[2018-06-07 09:59] LABS: Hemoglobin 11.6 g/dL (12.0-16.0)
--- NOTE | 2018-06-07 11:48 | PDOC.PN ---
- Subjective Encounter Start Date: 06/07/18 Encounter Start Time: 08:45 Patient seen and examined. No new complaints. No overnight events - Objective Resuscitation Status - Order Detail: 06/05/18 09:45 Resuscitation Status Routine Resuscitation Status: FULL: Full Resuscitation MAR Reviewed: Yes Vital Signs & Weight: Vital Signs (12 hours) Temp Pulse Resp BP Pulse Ox 06/07/18 07:59 97.5 F L 99 18 154/87 H 100 06/07/18 04:00 98.0 F 59 L 20 143/84 H 100 06/07/18 00:00 98.1 F 71 20 149/82 H 96 Weight Weight 149 lb 14.629 oz I&O: 06/06/18 06/07/18 06/08/18 06:59 06:59 06:59 Intake Total 3410 3960 Output Total 20058 3914 Balance -97513 -4762 Result Diagrams: 06/07/18 09:30 06/06/18 04:42 Phys Exam - Physical Examination Constitutional: NAD HEENT: PERRLA, moist MMs, sclera anicteric Neck: no JVD, supple Respiratory: no wheezing, no rales, no rhonchi Cardiovascular: RRR, no significant murmur, no rub Gastrointestinal: soft, non-tender, no distention, positive bowel sounds Musculoskeletal: no edema, pulses present Neurological: non-focal, normal sensation Lymphatic: no nodes Psychiatric: normal affect, A&O x 3 Skin: no rash, normal turgor Dx/Plan (1) Clot retention of urine Code(s): R33.8 - OTHER RETENTION OF URINE Status: Acute (2) Gross hematuria Status: Acute (3) Hyponatremia Code(s): E87.1 - HYPO-OSMOLALITY AND HYPONATREMIA Status: Acute (4) UTI (urinary tract infection) due to urinary indwelling [place] catheter Code(s): T83.511A - I/I REACT D/T INDWELLING URETHRAL CATHETER, INIT; N39.0 - URINARY TRACT INFECTION, SITE NOT SPECIFIED Status: Acute (5) CAD (coronary artery disease) Code(s): I25.10 - ATHSCL HEART DISEASE OF [place] CORONARY ARTERY W/O ANG PCTRS Status: Chronic (6) Chronic low back pain Code(s): M54.5 - LOW BACK PAIN; G89.29 - OTHER CHRONIC PAIN Status: Chronic (7) Dyslipidemia Code(s): E78.5 - HYPERLIPIDEMIA, UNSPECIFIED Status: Chronic (8) GERD (gastroesophageal reflux disease) Code(s): K21.9 - GASTRO-ESOPHAGEAL REFLUX DISEASE WITHOUT ESOPHAGITIS Status: Chronic (9) Hypertension Code(s): I10 - ESSENTIAL (PRIMARY) HYPERTENSION Status: Chronic - Plan cont current plan of care * medication reviewed as below * symptomatic treatment * medically stable * urology to decide for her hematuria. * continue CBI Review of Systems - Review of Systems ENT: negative: Ear Pain, Ear Discharge, Nose Pain, Nose Discharge, Nose Congestion, Mouth Pain, Mouth Swelling, Throat Pain, Throat Swelling, Other Respiratory: negative: Cough, Dry, Shortness of Breath, Hemoptysis, SOB with Excertion, Pleuritic Pain, Sputum, Wheezing Cardiovascular: negative: chest pain, palpitations, orthopnea, paroxysmal nocturnal dyspnea, edema, light headedness, other Gastrointestinal: negative: Nausea, Vomiting, Abdominal Pain, Diarrhea, Constipation, Melena, Hematochezia, Other Genitourinary: Hematuria. negative: Dysuria, Frequency, Incontinence, Retention , Other Musculoskeletal: negative: Neck Pain, Shoulder Pain, Arm Pain, Back Pain, Hand Pain, Leg Pain, Foot Pain, Other Skin: negative: Rash, Lesions, Elijah, Bruising, Other - Medications/Allergies Allergies/Adverse Reactions: Allergies Allergy/AdvReac Type Severity Reaction Status Date / Time erythromycin base Allergy Rash Verified 05/31/18 10:40 Medications: Current Medications Hydrocodone Bitart/Acetaminophen ([place] 5/325) 1 tab PO Q4H PRN PRN Reason: Moderate Pain (4-6) Hydrocodone Bitart/Acetaminophen ([place] 5/325) 2 tab PO Q4H PRN PRN Reason: Severe Pain (7-10) Al Hydroxide/Mg Hydroxide (Maalox) 30 ml PO Q4H PRN PRN Reason: Indigestion Ascorbic Acid (Vitamin C) 500 mg PO [facility] Last Admin: 06/06/18 20:41 Dose: Not Given Atorvastatin Calcium (Lipitor) 20 mg PO [facility] Last Admin: 06/06/18 20:42 Dose: 20 mg Calcium/Vitamin D (Caltrate 600 + Vit D) 1 tab PO BID [facility] Last Admin: 06/07/18 07:46 Dose: 1 tab Coenzyme Q10 (Coenzyme Q10) 200 mg PO [facility] Last Admin: 06/06/18 20:51 Dose: 200 mg Cyanocobalamin (Vitamin B-12) 5,000 mcg PO DAILY [facility] Last Admin: 06/07/18 07:48 Dose: Not Given Diphenhydramine HCl (Benadryl) 25 mg IVP Q6H PRN PRN Reason: Itching Docusate Sodium (Colace) 100 mg PO BID [facility] Last Admin: 06/07/18 07:49 Dose: 100 mg Ezetimibe (Zetia) 10 mg PO DAILY [facility] Last Admin: 06/07/18 08:29 Dose: 10 mg Estradiol (Estrace) 1 mg PO Q2DAYS@0900 [facility] Last Admin: 06/06/18 10:08 Dose: Not Given Fish Oil (Fish Oil) 1,000 mg PO DAILY [facility] Last Admin: 06/07/18 07:46 Dose: Not Given Lisinopril/HCTZ (Prinizide 20-25) 1 tab PO [facility] Hydralazine HCl (Apresoline) 20 mg SLOW IVP Q4H PRN PRN Reason: SBP greater than 160/100 Hydralazine HCl (Apresoline) 20 mg SLOW IVP Q6H PRN PRN Reason: SBP greater than 160/100 Hyoscyamine Sulfate (Levsin Sl) 0.125 mg PO Q4H [facility] Last Admin: 06/07/18 07:48 Dose: 0.125 mg Sodium Chloride (Normal Saline 0.9%) 1,000 mls @ 80 mls/hr IV .[id number] [facility] Last Admin: 06/06/18 21:12 Dose: 1,000 mls Lisinopril (Zestril) 10 mg PO HS [facility] Last Admin: 06/06/18 20:45 Dose: 10 mg Morphine Sulfate (Morphine) 2 mg IVP Q2H PRN PRN Reason: Moderate Pain (4-6) Morphine Sulfate (Morphine) 4 mg SLOW IVP Q2H PRN PRN Reason: Severe Pain (7-10) Ondansetron HCl (Zofran) 4 mg IVP Q6H PRN PRN Reason: Nausea Oxybutynin Chloride (Ditropan) 5 mg PO Q8HR [facility] Last Admin: 06/07/18 04:50 Dose: 5 mg Pantoprazole Sodium (Protonix) 40 mg PO QAM [facility] Last Admin: 06/07/18 07:47 Dose: 40 mg Polyethylene Glycol (Miralax) 17 gm PO BID [facility] Last Admin: 06/07/18 08:30 Dose: 17 gm Sodium Chloride (Flush - Normal Saline) 10 ml IVF PRN PRN PRN Reason: Saline Flush Verapamil HCl (Calan Sr) 240 mg PO HS [facility] Last Admin: 06/06/18 20:52 Dose: 240 mg
[2018-06-07] MEDS ORDERED: Lisinopril/Hydrochlorothiazide 20/25 mg Tablet PO SCH (17:00)
[2018-06-07] MEDS: Ascorbic Acid 500 mg Chewable Tablet PO SCH (20:44)
[2018-06-07] MEDS: Lisinopril 10 MG TAB PO SCH (20:44)
[2018-06-07] MEDS: Atorvastatin Calcium 20 MG TAB PO SCH (20:44)
[2018-06-07] MEDS: Ubidecarenone 50 MG CAP PO SCH (20:45)
[2018-06-07] MEDS: Sodium Chloride 0.9% 1,000 ML IV SCH (20:49)
[2018-06-08 07:27] VITALS: BP 123/76; TEMP 98.3
[2018-06-08] MEDS: Calcium Carbonate + Vit D 1 TAB PO SCH (08:40)
[2018-06-08] MEDS: Estradiol 1 MG TAB PO SCH (08:40)
[2018-06-08] MEDS: Ezetimibe 10 MG TAB PO SCH (08:40)
[2018-06-08] MEDS: Docusate 100 MG CAP PO SCH (08:40)
[2018-06-08] MEDS: Polyethylene Glycol 3350 17 GM Packet PO SCH (08:40)
[2018-06-08] MEDS: Fish Oil 1,000 MG CAP PO SCH (08:41)
[2018-06-08] MEDS: Cyanocobalamin (Vitamin B-12) 1,000 MCG TAB PO SCH (08:42)
--- NOTE | 2018-06-08 09:53 | PDOC.PN ---
- Subjective Encounter Start Date: 06/08/18 Encounter Start Time: 08:30 Patient seen and examined. No new complaints. No overnight events - Objective Resuscitation Status - Order Detail: 06/05/18 09:45 Resuscitation Status Routine Resuscitation Status: FULL: Full Resuscitation MAR Reviewed: Yes Vital Signs & Weight: Vital Signs (12 hours) Temp Pulse Resp BP BP Pulse Ox 06/08/18 07:24 98.3 F 68 16 123/76 98 06/08/18 04:00 98.0 F 61 20 139/74 97 06/08/18 00:00 98.2 F 75 20 128/74 97 Weight Weight 149 lb 14.629 oz I&O: 06/07/18 06/08/18 06/09/18 06:59 06:59 06:59 Intake Total 3960 1800 Output Total 7450 4150 Balance -3490 -2350 Result Diagrams: 06/07/18 09:30 06/06/18 04:42 Phys Exam - Physical Examination Constitutional: NAD HEENT: PERRLA, moist MMs, sclera anicteric Neck: no JVD, supple Respiratory: no wheezing, no rales, no rhonchi Cardiovascular: RRR, no significant murmur, no rub Gastrointestinal: soft, non-tender, no distention, positive bowel sounds Musculoskeletal: no edema, pulses present Neurological: non-focal, normal sensation, moves all 4 limbs Lymphatic: no nodes Psychiatric: normal affect, A&O x 3 Skin: no rash, normal turgor Dx/Plan (1) Clot retention of urine Code(s): R33.8 - OTHER RETENTION OF URINE Status: Acute (2) Gross hematuria Status: Acute (3) Hyponatremia Code(s): E87.1 - HYPO-OSMOLALITY AND HYPONATREMIA Status: Acute (4) UTI (urinary tract infection) due to urinary indwelling [place] catheter Code(s): T83.511A - I/I REACT D/T INDWELLING URETHRAL CATHETER, INIT; N39.0 - URINARY TRACT INFECTION, SITE NOT SPECIFIED Status: Acute (5) CAD (coronary artery disease) Code(s): I25.10 - ATHSCL HEART DISEASE OF [place] CORONARY ARTERY W/O ANG PCTRS Status: Chronic (6) Chronic low back pain Code(s): M54.5 - LOW BACK PAIN; G89.29 - OTHER CHRONIC PAIN Status: Chronic (7) Dyslipidemia Code(s): E78.5 - HYPERLIPIDEMIA, UNSPECIFIED Status: Chronic (8) GERD (gastroesophageal reflux disease) Code(s): K21.9 - GASTRO-ESOPHAGEAL REFLUX DISEASE WITHOUT ESOPHAGITIS Status: Chronic (9) Hypertension Code(s): I10 - ESSENTIAL (PRIMARY) HYPERTENSION Status: Chronic - Plan cont current plan of care * hematuria now clearing up * on CBI * medication reviewed as below * symptomatic treatment * discharge per urology service. Review of Systems - Review of Systems ENT: negative: Ear Pain, Ear Discharge, Nose Pain, Nose Discharge, Nose Congestion, Mouth Pain, Mouth Swelling, Throat Pain, Throat Swelling, Other Respiratory: negative: Cough, Dry, Shortness of Breath, Hemoptysis, SOB with Excertion, Pleuritic Pain, Sputum, Wheezing Cardiovascular: negative: chest pain, palpitations, orthopnea, paroxysmal nocturnal dyspnea, edema, light headedness, other Gastrointestinal: negative: Nausea, Vomiting, Abdominal Pain, Diarrhea, Constipation, Melena, Hematochezia, Other Genitourinary: negative: Dysuria, Frequency, Incontinence, Hematuria, Retention , Other Musculoskeletal: negative: Neck Pain, Shoulder Pain, Arm Pain, Back Pain, Hand Pain, Leg Pain, Foot Pain, Other Skin: negative: Rash, Lesions, Elijah, Bruising, Other - Medications/Allergies Allergies/Adverse Reactions: Allergies Allergy/AdvReac Type Severity Reaction Status Date / Time erythromycin base Allergy Rash Verified 05/31/18 10:40 Medications: Current Medications Hydrocodone Bitart/Acetaminophen ([place] 5/325) 1 tab PO Q4H PRN PRN Reason: Moderate Pain (4-6) Hydrocodone Bitart/Acetaminophen ([place] 5/325) 2 tab PO Q4H PRN PRN Reason: Severe Pain (7-10) Al Hydroxide/Mg Hydroxide (Maalox) 30 ml PO Q4H PRN PRN Reason: Indigestion Ascorbic Acid (Vitamin C) 500 mg PO [facility] Last Admin: 06/07/18 20:44 Dose: Not Given Atorvastatin Calcium (Lipitor) 20 mg PO [facility] Last Admin: 06/07/18 20:44 Dose: 20 mg Calcium/Vitamin D (Caltrate 600 + Vit D) 1 tab PO BID [facility] Last Admin: 06/08/18 08:40 Dose: 1 tab Coenzyme Q10 (Coenzyme Q10) 200 mg PO HS [facility] Last Admin: 06/07/18 20:45 Dose: 200 mg Cyanocobalamin (Vitamin B-12) 5,000 mcg PO DAILY [facility] Last Admin: 06/08/18 08:42 Dose: Not Given Diphenhydramine HCl (Benadryl) 25 mg IVP Q6H PRN PRN Reason: Itching Docusate Sodium (Colace) 100 mg PO BID [facility] Last Admin: 06/08/18 08:40 Dose: 100 mg Ezetimibe (Zetia) 10 mg PO DAILY [facility] Last Admin: 06/08/18 08:40 Dose: 10 mg Estradiol (Estrace) 1 mg PO Q2DAYS@0900 [facility] Last Admin: 06/08/18 08:40 Dose: 1 mg Fish Oil (Fish Oil) 1,000 mg PO DAILY [facility] Last Admin: 06/08/18 08:41 Dose: Not Given Lisinopril/HCTZ (Prinizide 20-25) 1 tab PO QPM-WM [facility] Last Admin: 06/07/18 17:17 Dose: 1 tab Hydralazine HCl (Apresoline) 20 mg SLOW IVP Q4H PRN PRN Reason: SBP greater than 160/100 Hydralazine HCl (Apresoline) 20 mg SLOW IVP Q6H PRN PRN Reason: SBP greater than 160/100 Sodium Chloride (Normal Saline 0.9%) 1,000 mls @ 80 mls/hr IV .[id number] [facility] Last Admin: 06/07/18 20:49 Dose: 1,000 mls Lisinopril (Zestril) 10 mg PO [facility] Last Admin: 06/07/18 20:44 Dose: Not Given Morphine Sulfate (Morphine) 2 mg IVP Q2H PRN PRN Reason: Moderate Pain (4-6) Morphine Sulfate (Morphine) 4 mg SLOW IVP Q2H PRN PRN Reason: Severe Pain (7-10) Ondansetron HCl (Zofran) 4 mg IVP Q6H PRN PRN Reason: Nausea Pantoprazole Sodium (Protonix) 40 mg PO QAM [facility] Last Admin: 06/08/18 08:40 Dose: 40 mg Polyethylene Glycol (Miralax) 17 gm PO BID [facility] Last Admin: 06/08/18 08:40 Dose: 17 gm Sodium Chloride (Flush - Normal Saline) 10 ml IVF PRN PRN PRN Reason: Saline Flush Verapamil HCl (Calan Sr) 240 mg PO HS [facility] Last Admin: 06/07/18 21:02 Dose: 240 mg
--- NOTE | 2018-06-08 15:30 | DIS ---
DATE OF ADMISSION: 06/05/2018 DATE OF DISCHARGE: 06/08/2018 PRIMARY CARE PHYSICIAN: Juju Lewis MD. DISCHARGE DISPOSITION: Home. PRIMARY DISCHARGE DIAGNOSES: Acute clot retention of urine, gross hematuria after bladder biopsy, hyponatremia, urinary tract infection with [place] catheter. SECONDARY DISCHARGE DIAGNOSES: Hypertension, gastroesophageal reflux disease, dyslipidemia, chronic low back pain, coronary artery disease. PRIMARY PROCEDURE/OPERATIONS: None. RADIOLOGICAL INVESTIGATION: None. LABORATORY DATA: Significant labs: WBC 12.2, hemoglobin 11.6, platelets 501. Sodium 134, potassium 4.3, BUN 11, creatinine 0.62, calcium 8.6, cortisol 2.30. Urinalysis suggestive of UTI. Urine culture negative. DISCHARGE MEDICATIONS: 1. Vitamin C 500 mg p.o. daily. 2. Lipitor 20 mg p.o. daily. 3. Calcium with vitamin D1 two tablets p.o. b.i.d. 4. Cinnamon 500 mg p.o. b.i.d. 5. Cranberry 500 mg daily. 6. Vitamin B12 5000 mcg p.o. daily. 7. Nexium 20 mg p.o. daily. 8. Estrace 1 tablet p.o. as directed. 9. Zetia 10 mg daily. 10. Fish oil one capsule daily. 11. [place] 1 tablet as directed. 12. Lisinopril 10 mg p.o. at bedtime. 13. Prinzide 20/25 one tablet daily. 14. Magnesium citrate 400 mg p.o. b.i.d. 15. Nystatin as directed. 16. MiraLax 17 g p.o. b.i.d. 17. Resveratrol 200 mg p.o. daily. 18. Coenzyme Q10 200 mg daily. 19. Verapamil SR 240 mg p.o. daily. 20. Macrobid 100 mg twice daily. CONTRAINDICATION: None. CODE STATUS: Full code. INPATIENT CONSULTANTS: Dr. Robles and Dr. Selby were following while in hospital. TEST RESULTS PENDING ON DISCHARGE: None. ALLERGIES: ERYTHROMYCIN BASE. DISCHARGE PLAN: Post hospital, the patient will follow up with primary care physician and Dr. Selby as instructed. HOSPITAL COURSE: An 83-year-old female with above-mentioned medical problems, who was admitted by Dr. Robles. The patient was having clot retention after bladder biopsy from hematuria. The patient required bladder irrigation. Initially, this patient was kept as observation status, but subsequently status was changed to inpatient because persistent hematuria which will be requiring continuous bladder irrigation. Urology following while in hospital. Her cultures remain negative. While in hospital, initially the patient was given antibiotic therapy and subsequently the patient was given Macrobid on discharge. Overall, this patient is medically stable for discharge as well. The patient will continue all her previous medications. She will follow up with Urology as instructed. All the medication prescription given by Dr. Selby. The patient is seen and examined at bedside today. Please see my progress note from today for further detail. Job ID: [id number]
== END 2018-06-08 15:41 | disposition home or self-care (01) | DRG 699 ==
LOC: ERS 15:55 → T4-A 17:15 → OBSVTOIN 06-05 10:36
PROVIDERS: ADMIT Urology; ATTEND Urology
DX: N99.89 Other postprocedural complications and disorders of genitourinary system (principal); T83.511A Infection and inflammatory reaction due to indwelling urethral catheter, initial encounter; E87.1 Hypo-osmolality and hyponatremia; N39.0 Urinary tract infection, site not specified; R33.8 Other retention of urine; R31.0 Gross hematuria; I25.10 Atherosclerotic heart disease of native coronary artery without angina pectoris; E78.5 Hyperlipidemia, unspecified; M54.5 Low back pain; G89.29 Other chronic pain; K21.9 Gastro-esophageal reflux disease without esophagitis; I10 Essential (primary) hypertension
CPT/HCPCS: 36415; 51702; 74420; 80048; 80053; 81003; 81015; 82533; 83930; 83935; 85018; 85025; 87086; 88305; 88307; C1758; C1769; J0360; J0696; J1940; J2001; J2250; J2405; J2550; J2704; J3010; J7050; Q0162; Q9961

== ENCOUNTER 2018-09-28 10:27 | Outpatient (CLI) | payer MEDICARE, BC ==
--- NOTE | 2018-09-28 13:18 | MRI ---
FMR of the left hip without contrast INDICATION: History of left hip pain and left hip arthritis COMPARISON: Prior MR of the left hip dated January 24, 2018 TECHNIQUE: Multiplanar multisequence MR images were obtained of the left and without IV contrast. FINDINGS: Bone marrow signal intensity: Normal. No evidence for fracture. Musculature: There is minimal interval development of a full-thickness tear involving the left gluteu s minimus with minimal retraction. There is worsening high-grade partial-thickness tear involving the bursal surface of the anterior to mid gluteus medius tendon at the insertion. There is worsening ten dinosis of left gluteus medius tendon. The remaining hip musculature appears within normal limits. Bursa: There is been interval development of moderate to prominent left-sided trochanteric bursitis. No iliopsoas bursitis is evident. Joint: No definite paralabral cyst is evident. Visualized acetabular labrum appears intact. There is mild degenerative arthrosis of the left hip joint. This is stable to the prior exam. Nerves: Normal. Intrapelvic contents: No acute abnormality. No lymphadenopathy seen. IMPRESSION: 1. Interval development of full thickness tear involving the left gluteus minimus tendon with minimal retraction. 2. Worsening high-grade partial-thickness tear of the anterior bursal surface of the left wrist mediu s tendon at the insertion. 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 3. Moderate to prominent left-sided trochanteric bursitis. 4. Stable mild left hip joint osteoarthrosis
== END 2018-09-28 10:28 | disposition home or self-care (01) ==
LOC: TBSIIMAG 10:27
PROVIDERS: ATTEND Anesthesiology Pain Medicine
DX: M16.12 Unilateral primary osteoarthritis, left hip (principal); S66.912A Strain of unspecified muscle, fascia and tendon at wrist and hand level, left hand, initial encounter; S76.012A Strain of muscle, fascia and tendon of left hip, initial encounter; M70.62 Trochanteric bursitis, left hip

== ENCOUNTER 2022-05-26 10:33 | Outpatient (CLI) | payer MEDICARE, BC | END 2022-05-26 10:34 | disposition home or self-care (01) | LOC: BICMAMMO 10:33 | PROVIDERS: ATTEND Student in an Organized Health Care Education/Training Program | DX: Z12.31 Encounter for screening mammogram for malignant neoplasm of breast (principal) | CPT/HCPCS: 77063; 77067 ==